=== PATIENT | female | born 1985 | race Caucasian/White ===

== ENCOUNTER 2020-12-17 14:54 | Outpatient (REF) | payer MEDICAID, SELFPAY ==
[2020-12-17 21:24] LABS: HGB 14.2 g/dL (11.2-15.7); MCH 31.5 pg (27.0-33.0); MCHC 33.8 % (32.0-36.0); MCV 93.1 fL (80-95); MPV 10.9 fL (8.0-11.0); Platelet Count 350 10^3/uL (130-400); RBC 4.51 10^6/uL (3.93-5.22); RDW 11.7 % (11.7-14.6); RDW-SD 40.4 fL; WBC 7.16 10^3/uL (4.4-10.8)
[2020-12-17 21:44] LABS: ALT 21 U/L (14-59); AST 12 U/L (15-37); Albumin 3.9 g/dL (3.4-5.0); Alkaline Phosphatase 64 U/L (46-116); Anion Gap 6.9 mmol/L (3-11); BUN 18 mg/dL (7-18); Bilirubin, Total 0.5 mg/dL (0.2-1.0); CO2 28.1 mmol/L (21.0-32.0); CREATININE 0.6 mg/dL (0.55-1.02); Calcium 8.9 mg/dL (8.5-10.1); Chloride 106 mmol/L (98-107); Glucose 77 mg/dL (74-106); Potassium 4.4 mmol/L (3.5-5.1); Sodium 141 mmol/L (136-145); TSH (W/Ref FT4) 1.78 uIU/mL (0.36-3.74); Total Protein 6.7 g/dL (6.4-8.2)
== END 2020-12-17 14:55 | disposition home or self-care (01) ==
LOC: NCHCN 14:54
PROVIDERS: PCP Family Medicine; Visit Provider Nurse Practitioner Family
DX: Z00.00 Encounter for general adult medical examination without abnormal findings (principal)
CPT/HCPCS: 80053; 85027; 84443

== ENCOUNTER 2021-01-28 13:13 | Outpatient (REF) | payer MEDICAID, SELFPAY ==
[2021-01-28 22:18] LABS: Abs Immature Grans 0.02 10^3/uL (0.0-0.06); Absolute Basophil Count 0.05 10^3/uL (0.0-0.2); Absolute Eosinophil Count 0.16 10^3/uL (0.0-0.7); Absolute Lymphocyte Count 1.89 10^3/uL (1.2-3.4); Absolute Monocyte Count 0.59 10^3/uL (0.1-0.8); Absolute Neutrophil Count 5.05 10^3/uL (1.2-6.7); Basophils % 0.6; Eosinophils % 2.1; HCT 41.1 % (36.0-46.0); HGB 13.9 g/dL (11.2-15.7); Immature Grans % 0.3; Lymphocytes % 24.4; MCH 30.6 pg (27.0-33.0); MCHC 33.8 % (32.0-36.0); MCV 90.5 fL (80-95); MPV 11.1 fL (8.0-11.0); Monocytes % 7.6; Nucleated RBC 0 %; Platelet Count 385 10^3/uL (130-400); RBC 4.54 10^6/uL (3.93-5.22); RDW 11.3 % (11.7-14.6); RDW-SD 37.3 fL; WBC 7.76 10^3/uL (4.4-10.8)
[2021-01-28 22:29] LABS: ALT 25 U/L (14-59); AST 15 U/L (15-37); Albumin 3.8 g/dL (3.4-5.0); Alkaline Phosphatase 74 U/L (46-116); Anion Gap 4.8 mmol/L (3-11); BUN 18 mg/dL (7-18); Bilirubin, Total 0.5 mg/dL (0.2-1.0); CO2 31.2 mmol/L (21.0-32.0); CREATININE 0.6 mg/dL (0.55-1.02); Calcium 8.7 mg/dL (8.5-10.1); Chloride 104 mmol/L (98-107); Glucose 78 mg/dL (74-106); Lipase 109 U/L (73-393); Potassium 4.3 mmol/L (3.5-5.1); Sodium 140 mmol/L (136-145); Total Protein 6.5 g/dL (6.4-8.2)
== END 2021-01-28 13:14 | disposition home or self-care (01) ==
LOC: NCHCN 13:13
PROVIDERS: PCP Family Medicine; Visit Provider Nurse Practitioner Family
DX: R10.9 Unspecified abdominal pain (principal); Z51.81 Encounter for therapeutic drug level monitoring
CPT/HCPCS: 80053; 83690; 85025

== ENCOUNTER 2021-02-26 13:48 | Outpatient (REF) | payer MEDICAID, SELFPAY ==
[2021-02-26 13:53] LABS: ALT 23 U/L (14-59); AST 12 U/L (15-37); Albumin 3.7 g/dL (3.4-5.0); Alkaline Phosphatase 65 U/L (46-116); Anion Gap 5.3 mmol/L (3-11); BUN 12 mg/dL (7-18); Bilirubin, Total 0.6 mg/dL (0.2-1.0); CO2 28.7 mmol/L (21.0-32.0); CREATININE 0.7 mg/dL (0.55-1.02); Calcium 8.6 mg/dL (8.5-10.1); Chloride 105 mmol/L (98-107); Glucose 64 mg/dL (74-106); Sodium 139 mmol/L (136-145); Total Protein 6.4 g/dL (6.4-8.2)
== END 2021-02-26 13:49 | disposition home or self-care (01) ==
LOC: NCHCN 13:48
PROVIDERS: PCP Family Medicine; Visit Provider Nurse Practitioner Family
DX: Z51.81 Encounter for therapeutic drug level monitoring (principal)
CPT/HCPCS: 80053

== ENCOUNTER 2021-08-19 16:34 | Outpatient (REF) | payer MEDICAID, SELFPAY ==
[2021-08-21 08:07] LABS: HBs Antibody, Quant >1000.0 mIU/mL (See Note); Hepatitis B Surface Ab Positive (See Note)
[2021-08-21 08:59] LABS: Hepatitis C Ab w Rflx HCV PCR Negative (Negative)
[2021-08-21 09:09] LABS: HIV-1/2 Ag & Ab Screen Negative (Negative)
[2021-08-21 09:41] LABS: Hepatitis B Surface Ag Negative (Negative)
[2021-08-21 11:08] LABS: Syphilis Serology (RPR) Negative (Negative)
[2021-08-21 15:09] LABS: Chlamydia Result Negative (Negative); GC Result Negative (Negative)
== END 2021-08-19 16:35 | disposition home or self-care (01) ==
LOC: NCHCN 16:34
PROVIDERS: PCP Family Medicine; Visit Provider Nurse Practitioner Family
DX: Z11.3 Encounter for screening for infections with a predominantly sexual mode of transmission (principal); Z11.59 Encounter for screening for other viral diseases; Z11.4 Encounter for screening for human immunodeficiency virus [HIV]
CPT/HCPCS: 86706; 86803; 87340; 87389; 87491; 87591; 86592

== ENCOUNTER 2021-12-03 12:54 | Outpatient (REF) | payer MEDICAID, SELFPAY ==
[2021-12-03 21:06] LABS: ALT 42 U/L (14-59); AST 39 U/L (15-37); Albumin 3.6 g/dL (3.4-5.0); Alkaline Phosphatase 80 U/L (46-116); BUN 7 mg/dL (7-18); Bilirubin, Total 0.6 mg/dL (0.2-1.0); CREATININE 0.8 mg/dL (0.55-1.02); Calcium 8.6 mg/dL (8.5-10.1); Chloride 103 mmol/L (98-107); Estimated GFR 98.48 (mL/min/1.73m2); Glucose 82 mg/dL (74-106); Potassium 4.2 mmol/L (3.5-5.1); Sodium 138 mmol/L (136-145); Total Protein 7.2 g/dL (6.4-8.2)
[2021-12-03 21:10] LABS: HCT 45.6 % (36.0-46.0); HGB 15.5 g/dL (11.2-15.7); Lymphocytes % 12.1; MCV 91 fL (80-95); MPV 11.3 fL (8.0-11.0); Neutrophils % 77.7; Platelet Count 217 10^3/uL (130-400); RDW 11.8 % (11.7-14.6); RDW-SD 39.6 fL
[2021-12-03 21:11] LABS: Abs Immature Grans 0.03 10^3/uL (0.0-0.06); Absolute Basophil Count 0.02 10^3/uL (0.0-0.2); Absolute Eosinophil Count 0.01 10^3/uL (0.0-0.7); Absolute Lymphocyte Count 0.51 10^3/uL (1.2-3.4); Absolute Monocyte Count 0.37 10^3/uL (0.1-0.8); Absolute Neutrophil Count 3.26 10^3/uL (1.2-6.7); Basophils % 0.5; Eosinophils % 0.2; Immature Grans % 0.7; Monocytes % 8.8
[2021-12-03 21:13] LABS: Prothrombin Time 9.7 sec (9.3-11.0)
[2021-12-05 08:24] LABS: HBs Antibody, Quant >1000.0 mIU/mL (See Note); Hepatitis B Surface Ab Positive (See Note)
[2021-12-05 08:35] LABS: Hepatitis B Surface Ag Negative (Negative)
[2021-12-05 09:35] LABS: Hep B Core Antibody Negative (Negative)
== END 2021-12-03 12:55 | disposition home or self-care (01) ==
LOC: NCHCN 12:54
PROVIDERS: PCP Family Medicine; Visit Provider Registered Nurse
DX: B19.10 Unspecified viral hepatitis B without hepatic coma (principal); Z11.59 Encounter for screening for other viral diseases
CPT/HCPCS: 80053; 86704; 86706; 87340; 85025; 85610

== ENCOUNTER 2022-09-28 16:19 | Outpatient (REF) | payer MEDICAID, SELFPAY ==
[2022-09-30 13:12] LABS: Chlamydia Result Negative (Negative); GC Result Negative (Negative)
== END 2022-09-28 16:20 | disposition home or self-care (01) ==
LOC: NCHCN 16:19
PROVIDERS: PCP Family Medicine; Visit Provider Family Medicine
DX: N39.0 Urinary tract infection, site not specified (principal); Z11.3 Encounter for screening for infections with a predominantly sexual mode of transmission
CPT/HCPCS: 87077; 87491; 87591; 87086; 87186